=== PATIENT | male | born 2000 | race Caucasian/White ===

== ENCOUNTER 2024-11-27 14:39 | Emergency (ER) | payer OTHER, SELFPAY ==
[2024-11-27 14:40] VITALS: BP 146/89; PULSE 63; RESP 20; TEMP 36.7; O2SAT 98
--- NOTE | 2024-11-27 14:50 | XR_ITS ---
WS: [id number] views of the right second finger, 11/27/2024 Clinical Data: trauma, FB Comparison: None. Findings: No fractures or dislocations are seen. There is a radiopaque needle in the ventral soft tissue of the right second finger at the level of the mid proximal phalanx. The joint spaces are not remarkable. XR/XR finger RT min 2V 11563 Impression: Nail impaled through ventral soft tissue of the proximal phalanx of right secon d finger
--- NOTE | 2024-11-27 14:54 | W.ED.WOUNDLC ---
HPI - Wound/Laceration General: Chief Complaint: Wound/Laceration Stated Complaint: Nail in finger Time Seen by Provider: 11/27/24 14:50 Source: patient Mode of arrival: ambulatory Limitations: no limitations History of Present Illness: 24yo male presents with coworker for evaluation of an injury to the right index finger that occurred just prior to arrival. States he was using a nail gun and accidentally shot the nail into his right finger. Tetanus in 2021. Denies any other injury or concern at this time. Associated symptoms: Denies chills or fever(s) Related Data Home Medications ?Medication ?Instructions ?Recorded ?Confirmed melatonin 10 mg tablet 10 mg PO BEDTIME 11/27/24 11/27/24 Previous Rx's ?Medication ?Instructions ?Recorded cephalexin 500 mg capsule 500 mg PO QID 5 days #20 caps 11/27/24 Allergies Allergy/AdvReac Type Severity Reaction Status Date / Time No Known Allergies Allergy Verified 11/27/24 14:48 Review of Systems Const: Denies: fever(s), chills or body aches Card: Denies: chest pain Resp: Denies: dyspnea Musc: Reports: extremity pain (nail in right index finger) Physical Exam Const: COMMON NORMALS: no acute distress, patient oriented x3, healthy appearing and alert GENERAL APPEARANCE: cooperative ORIENTATION/CONSCIOUSNESS: Yes awake OTHER: Patient is sitting upright in a bedside chair in no acute distress. He is able to give history with no difficulty. He is interactive with exam appropriately. Coworkers at bedside HENMT: COMMON NORMALS: normocephalic and atraumatic HEAD & SCALP: normocephalic and atraumatic Neck/C-Spine: COMMON NORMALS: full ROM Chest: CHEST: Yes Symmetrical chest wall rise Resp: COMMON NORMALS: normal respiratory effort EFFORT & INSPECTION: Yes able to speak in complete sentences Extremity: RIGHT UPPER EXTREMITY: Yes hand & digits (nail embedded in right index finger. Bleeding controlled ) Neuro: COMMON NORMALS: patient oriented x3 SENSORIUM/ORIENTATION: Yes alert Procedures Foreign Body Removal Site: right and hand (index finger) Description of foreign body: other (nail) Sedation/Analgesia: other (digit block) Technique: manual removal Confirmed by:: direct visualization Complications: none Post-procedure exam: awake, alert Neurovascular: normal distal pulse, normal capillary fill, distal light touch sensation intact and distal motor function normal Course Vital Signs: Vital signs: Vital Signs Temperature 98.0 F 11/27/24 14:40 Pulse Rate 63 11/27/24 14:40 Respiratory Rate 20 H 11/27/24 14:40 Blood Pressure 146/89 11/27/24 14:40 Pulse Oximetry 98 11/27/24 14:40 Oxygen Delivery Me thod Room Air 11/27/24 14:40 MDM - Wound/Laceration Medical Decision Making 24yo male presents with coworker for evaluation of an injury to the right index finger that occurred just prior to arrival. States he was using a nail gun and accidentally shot the nail into his right finger. Tetanus in 2021. Denies any other injury or concern at this time. Patient is nontoxic in appearance. Vital signs are stable. Digit block completed for anesthesia, patient tolerated well. Nail was removed with no difficulty. Wound was irrigated and bandage applied. Cephalexin prescribed. Discussed activity modifications as well as wound care. Recommend follow-up with primary care in a few days for wound recheck. Return precautions provided. Patient states understanding and has no further questions or concerns at this time. Lab Data Radiology Impressions Finger X-Ray 11/27/24 14:50 Impression: Nail impaled through ventral soft tissue of the proximal phalanx of right second finger All radiology interpretation(s) finalized by discharge Discharge Plan Discharge Patient Disposition: Home Clinical Impression: Embedded foreign body Condition: Stable Prescriptions: New cephalexin 500 mg capsule 500 mg PO QID 5 Days Qty: 20 0RF No Action melatonin 10 mg Tablet 10 mg PO BEDTIME Discharge Orders: Discharge ED (Routine); Ordered 11/27/24 Ordered By: Stephan Davis Discharge Diet: Usual diet Discharge Activity: Increase activity as tolerated Patient Instructions: Soft Tissue Foreign Body (ED) Activity Restrictions/Additional Instructions: Cephalexin has been sent to the pharmacy to help prevent infection Gently wash at least twice daily with soap and water. You may apply antibiotic ointment. Monitor closely for signs of infection Follow-up with primary care as needed for wound recheck Return to the emergency department if any further injury, concern for infection, and as needed Print Language: Ukrainian Coding Level of Care Code ED [employer] for Brianna Esparza
[2024-11-27] MEDS: lidocaine 1% 10 ML INJ 2 ML XX (15:11)
[2024-11-27] MEDS: BUPivacaine 0.5% INJ 10 mL 2 ML XX (15:11)
[2024-11-27 15:47] VITALS: BP 125/69; PULSE 64; O2SAT 94
== END 2024-11-27 15:47 | disposition home or self-care (01) ==
PROVIDERS: Emergency Provider Nurse Practitioner
DX: S61.240A Puncture wound with foreign body of right index finger without damage to nail, initial encounter (principal); W45.8XXA Other foreign body or object entering through skin, initial encounter
CPT/HCPCS: 73140; 99284; J3490; J9999